=== PATIENT | female | born 1965 | race African-American/Black ===

== ENCOUNTER 2017-02-16 09:59 | Emergency (ER) | payer SELFPAY ==
[~2017-02-16] VITALS: Ht 175.3 cm; Wt 95.3 kg
[~2017-02-16 09:59] MED LIST: SULF1TAB24 PO
--- NOTE | 2017-02-16 10:11 | EKG ---
[facility] [address] [place] [address] Test Date: 2017-02-16 Test Time: 10:06:52 Pat Name: EDMOND ROMANO Department: Room: Gender: F Smalltalk Developer: : 1965 Requested By: LINDA GLORIA Order Number: [id number] Reading MD: Gisela Bright Measurements Intervals [place] Rate: 83 P: 15 WI: 176 QRS: -7 QRSD: 90 T: 31 QT: 410 QTc: 488 Interpretive Statements SINUS RHYTHM LEFT ATRIAL ABNORMALITY LEFTWARD AXIS ABNORMAL ECG Electronically Signed On 02-20-2017 15:16:22 CDT by Gisela Bright
[2017-02-16] MEDS ORDERED: fentaNYL PF VIAL 100 MCG/2 ML VIAL IV ONE (10:30)
--- NOTE | 2017-02-16 10:38 | PHYS DOC ---
Past Medical History Past Medical History: Anxiety, Arthritis, Hypertension Past Surgical History: Cholecystectomy, Knee Replacement, Tonsillectomy, Other Additional Past Surgical Histo: Partial hysterectomy Alcohol Use: Occasionally Drug Use: None Adult General Chief Complaint Chief Complaint: CHEST PAIN HPI HPI Patient is a 51 year old female who presents with intermittent sharp chest pain since yesterday. Pt is substernal and radiates to the left shoulder with mild SOB. Pt's had a "cold" with cough for almost 10 days with runny nose, cough, no known fevers. Pt denies known h/o CAD but has been told in the past she has a "weak heart" at . She has not attempted any symptom controlling medicine, no exacerbating or relieving factors reported. Denies h/o PE/DVT Review of Systems Review of Systems Constitutional: Denies fever or chills [] Eyes: Denies change in visual acuity, redness, or eye pain [] HENT: Denies nasal congestion or sore throat [] Respiratory: per hpi Cardiovascular: No additional information not addressed in HPI [] GI: Denies abdominal pain, nausea, vomiting, bloody stools or diarrhea [] : Denies dysuria or hematuria [] Musculoskeletal: Denies back pain or joint pain [] Integument: Denies rash or skin lesions [] Neurologic: Denies headache, focal weakness or sensory changes [] Current Medications Current Medications Current Medications Medications (Trade) Dose Ordered Sig/[facility] Start Time Stop Time Status Last Admin Dose Admin Fentanyl Citrate (Fentanyl 2ml Vial) 50 mcg 1X ONCE 02/16/17 10:30 02/16/17 10:31 DC 02/16/17 10:43 50 MCG Allergies Allergies Allergies Coded Allergies Type Severity Reaction Last Updated Verified lisinopril Allergy Severe Swelling 07/29/14 Yes morphine Allergy Intermediate stomach cramps 02/16/17 Yes Physical Exam Physical Exam Constitutional: Well developed, well nourished, no acute distress, non-toxic appearance, actively coughing a productive sounding cough HENT: Normocephalic, atraumatic, bilateral external ears normal, oropharynx moist, no oral exudates, nose normal. [] Eyes: PERRLA, EOMI, conjunctiva normal, no discharge. [] Neck: Normal range of motion, no tenderness, supple, no stridor. [] Cardiovascular:Heart rate regular with regular rhythm, no murmur [] Lungs & Thorax: Bilateral breath sounds clear to auscultation, no wheeze, crackles or rhonchi Abdomen: Bowel sounds normal, soft, no tenderness, no masses, no pulsatile masses. [] Skin: Warm, dry, no erythema, no rash. [] Back: No tenderness, no CVA tenderness. [] Extremities: No tenderness, no cyanosis, no clubbing, ROM intact, no edema, neg homen's bilaterally Neurologic: Alert and oriented X 3, normal motor function, normal sensory function, no focal deficits noted. [] Current Patient Data Vital Signs Vital Signs Date Time Temp Pulse Resp B/P (MAP) Pulse Ox O2 Delivery O2 Flow Rate FiO2 02/16/17 10:43 16 100 Room Air 02/16/17 10:05 98.3 82 131/75 (93) 98.3 Lab Values Laboratory Tests Test 02/16/17 10:20 White Blood Count 11.6 x10^3/uL (4.0-11.0) H Red Blood Count 4.60 x10^6/uL (3.50-5.40) Hemoglobin 14.0 g/dL (12.0-15.5) Hematocrit 41.3 % (36.0-47.0) Mean Corpuscular Volume 90 fL (79-100) Mean Corpuscular Hemoglobin 31 pg (25-35) Mean Corpuscular Hemoglobin Concent 34 g/dL (31-37) Red Cell Distribution Width 13.8 % (11.5-14.5) Platelet Count 340 x10^3/uL (140-400) Neutrophils (%) (Auto) 61 % (31-73) Lymphocytes (%) (Auto) 32 % (24-48) Monocytes (%) (Auto) 5 % (0-9) Eosinophils (%) (Auto) 2 % (0-3) Basophils (%) (Auto) 1 % (0-3) Neutrophils # (Auto) 7.0 x10^3uL (1.8-7.7) Lymphocytes # (Auto) 3.7 x10^3/uL (1.0-4.8) Monocytes # (Auto) 0.6 x10^3/uL (0.0-1.1) Eosinophils # (Auto) 0.2 x10^3/uL (0.0-0.7) Basophils # (Auto) 0.1 x10^3/uL (0.0-0.2) Prothrombin Time 12.2 SEC (11.7-14.0) Prothrombin Time INR 1.0 (0.8-1.1) Sodium Level 140 mmol/L (136-145) Potassium Level 3.6 mmol/L (3.5-5.1) Chloride Level 103 mmol/L (98-107) Carbon Dioxide Level 29 mmol/L (21-32) Anion Gap 8 (6-14) Blood Urea Nitrogen 9 mg/dL (7-20) Creatinine 0.8 mg/dL (0.6-1.0) Estimated GFR (Cockcroft-Gault) 91.1 BUN/Creatinine Ratio 11 (6-20) Glucose Level 141 mg/dL (70-99) H Calcium Level 8.9 mg/dL (8.5-10.1) Magnesium Level 2.0 mg/dL (1.8-2.4) Total Bilirubin 0.3 mg/dL (0.2-1.0) Aspartate Amino Transferase (AST) 17 U/L (15-37) Alanine Aminotransferase (ALT) 28 U/L (14-59) Alkaline Phosphatase 122 U/L (46-116) H Troponin I Quantitative < 0.017 ng/mL (0.000-0.055) Total Protein 7.2 g/dL (6.4-8.2) Albumin 3.6 g/dL (3.4-5.0) Albumin/Globulin Ratio 1.0 (1.0-1.7) Laboratory Tests 02/16/17 10:20 Laboratory Tests 02/16/17 10:20 EKG EKG 83 bpm, sinus, normal axis, QTC of 488, no ST elevation or depression, nonischemic T waves, interpreted by me[] Radiology/Procedures Radiology/Procedures Chest x-ray:Portable chest, 02/16/2017: History: Chest pain Comparison is made to a study from 01/16/2013. The heart size and pulmonary vascularity are normal. No pulmonary infiltrates are seen. There is no evidence of pleural fluid. IMPRESSION: No acute cardiopulmonary abnormality is detected. Course & Med Decision Making Course & Med Decision Making Pertinent Labs and Imaging studies reviewed. (See chart for details) Given IV fentanyl for pain relief while labs and chest x-ray performed. Wells score 0, low risk. No acute findings on ED workup, pt with sinusitis we will treat with Augmentin due to duration of symptoms, ibuprofen for chest pain, codeine cough syrup. f/ u with Dr. Yvette Bailon Disclaimer Uvaldo Disclaimer This electronic medical record was generated, in whole or in part, using a voice recognition dictation system. Departure Departure Impression: Primary Impression: Upper respiratory infection Additional Impressions: Chest pain Sinusitis Disposition: HOME, SELF-CARE Condition: STABLE Referrals: MOHAN LINDSAY (PCP) Scripts Codeine Phosphate/Guaifenesin (Guaifen-Codeine 200-20 mg/10Ml) 10 Ml Liquid 10 ML PO PRN Q4-6HRS Y for COUGH, #200 LIQUID use caution, may cause drowsiness Prov: LINDA GLORIA MD 02/16/17 Amoxicillin/Potassium Clav (AUGMENTIN 875-125 TABLET) 1 Each Tablet 1 TAB PO BID, #14 TAB Prov: LINDA GLORIA MD 02/16/17 Ibuprofen (IBUPROFEN) 600 Mg Tablet 600 MG PO PRN Q6HRS Y for PAIN, #20 TAB take with food or milk Prov: LINDA GLORIA MD 02/16/17 Problem Qualifiers LINDA GLORIA MD Feb 16, 2017 10:38
[2017-02-16 10:42] LABS: BASO # 0.1 x10^3/uL (0.0-0.2); BASO % 1 % (0-3); CALCIUM 8.9 mg/dL (8.5-10.1); CREATININE 0.8 mg/dL (0.6-1.0); EOS % 2 % (0-3); GFR 91.1; HEMATOCRIT 41.3 % (36.0-47.0); LYMPH # 3.7 x10^3/uL (1.0-4.8); LYMPH % 32 % (24-48); MEAN CORPUSCULAR HEMOGLOBIN 31 pg (25-35); MEAN CORPUSCULAR HGB CONC 34 g/dL (31-37); MEAN CORPUSCULAR VOLUME 90 fL (79-100); MONO % 5 % (0-9); NEUT % 61 % (31-73); PLATELET COUNT 340 x10^3/uL (140-400); POTASSIUM 3.6 mmol/L (3.5-5.1); RED CELL DISTRIBUTION WIDTH 13.8 % (11.5-14.5); WHITE BLOOD COUNT 11.6 x10^3/uL (4.0-11.0)
[2017-02-16 10:48] LABS: ALBUMIN 3.6 g/dL (3.4-5.0); TOTAL BILIRUBIN 0.3 mg/dL (0.2-1.0); TOTAL PROTEIN 7.2 g/dL (6.4-8.2)
[2017-02-16 10:57] LABS: PROTHROMBIN TIME PATIENT 12.2 SEC (11.7-14.0)
--- NOTE | 2017-02-16 11:00 | RAD ---
Portable chest, 02/16/2017: History: Chest pain Comparison is made to a study from 01/16/2013. The heart size and pulmonary vascularity are normal. No pulmonary infiltrates are seen. There is no evidence of pleural fluid. IMPRESSION: No acute cardiopulmonary abnormality is detected.
[2017-02-16 11:39] VITALS: BP 122/69
[2017-02-16] MEDS ORDERED: CODE10LI PO (11:43)
[2017-02-16] MEDS ORDERED: AMOX1TAB61 PO (11:43)
[2017-02-16] MEDS ORDERED: IBUP-1007 PO (11:43)
== END 2017-02-16 12:00 | disposition home or self-care (01) ==
LOC: ER 09:59
DX: J06.9 Acute upper respiratory infection, unspecified (principal); R07.89 Other chest pain; J32.9 Chronic sinusitis, unspecified; F41.9 Anxiety disorder, unspecified; I10 Essential (primary) hypertension; M19.90 Unspecified osteoarthritis, unspecified site; Z90.711 Acquired absence of uterus with remaining cervical stump; Z96.659 Presence of unspecified artificial knee joint; Z88.8 Allergy status to other drugs, medicaments and biological substances; Z88.5 Allergy status to narcotic agent
CPT/HCPCS: 36415; 71010; 80053; 83735; 84484; 85025; 85610; 93005; 96374; 99285; J3010

== ENCOUNTER 2018-01-25 10:53 | Inpatient (IN) | payer SELFPAY ==
[~2018-01-25] VITALS: Ht 175.3 cm; Wt 110.8 kg
[~2018-01-25 10:53] MED LIST changes: +AMOX1TAB61 PO; +CODE10LI PO; +IBUP-1007 PO
[2018-01-25 11:10] LABS: BASO # 0.1 x10^3/uL (0.0-0.2); BASO % 1 % (0-3); EOS # 0.2 x10^3/uL (0.0-0.7); EOS % 2 % (0-3); HEMATOCRIT 42.2 % (36.0-47.0); HEMOGLOBIN 14.8 g/dL (12.0-15.5); LYMPH # 4.3 x10^3/uL (1.0-4.8); LYMPH % 36 % (24-48); MEAN CORPUSCULAR HEMOGLOBIN 32 pg (25-35); MEAN CORPUSCULAR HGB CONC 35 g/dL (31-37); MEAN CORPUSCULAR VOLUME 90 fL (79-100); MONO # 0.6 x10^3/uL (0.0-1.1); MONO % 5 % (0-9); NEUT # 6.8 x10^3uL (1.8-7.7); NEUT % 56 % (31-73); PLATELET COUNT 326 x10^3/uL (140-400); RED BLOOD COUNT 4.67 x10^6/uL (3.50-5.40); RED CELL DISTRIBUTION WIDTH 13.3 % (11.5-14.5)
--- NOTE | 2018-01-25 11:22 | RAD ---
Single view chest 01/25/2018 CLINICAL INDICATION: Chest pain, shortness of breath. COMPARISON: Chest 02/16/2017 Lines: Cardiac and mediastinal silhouettes are unremarkable. No pleural effusion, pneumothorax or focal consolidation. IMPRESSION: No acute cardiopulmonary abnormality. Electronically signed by: Christoph Mclean MD (01/25/2018 11:18 AM) [id number]
[2018-01-25 11:23] LABS: CALCIUM 8.7 mg/dL (8.5-10.1); GFR 70.2; POTASSIUM 4.1 mmol/L (3.5-5.1)
[2018-01-25 11:29] LABS: ALBUMIN 3.4 g/dL (3.4-5.0); DIRECT BILIRUBIN 0.1 mg/dL (0.0-0.2); TOTAL BILIRUBIN 0.4 mg/dL (0.2-1.0); TOTAL PROTEIN 6.2 g/dL (6.4-8.2)
[2018-01-25 11:30] LABS: PROTHROMBIN TIME PATIENT 12.5 SEC (11.7-14.0)
--- NOTE | 2018-01-25 11:35 | PHYS DOC ---
Past Medical History Past Medical History: Anxiety, Arthritis, Hypertension Past Surgical History: Cholecystectomy, Knee Replacement, Tonsillectomy, Other Additional Past Surgical Histo: Partial hysterectomy Additional Information: 4 cigarettes daily Alcohol Use: Occasionally Drug Use: None Adult General Chief Complaint Chief Complaint: CHEST PAIN HPI HPI This is a pleasant 52-year-old female with a history of smoking, family history of heart disease and high blood pressure who presents the emergency department today with chest pain. She denies high cholesterol or diabetes. She denies a history of unilateral leg swelling, hemoptysis, recent immobilization or surgery. She denies personal or family history of blood clotting disorders. He describes the pain as a pulling a pressure sensation that radiates in the left chest and left shoulder. She reports having a cough for the past week to 2 weeks. She was given antibiotics which mildly improved his symptoms which returned a few days after discontinuing the antibiotics. Review of systems is negative for abdominal pain nausea vomiting diaphoresis fevers or chills. All other review of systems is negative unless otherwise noted in history of present illness. ED course: 52-year-old female presenting with chest pain and cough over the past week. Initial EKG obtained and reviewed by myself shows sinus rhythm with a regular rate. ST segments are congruent. Not suggestive of ACS. Patient is well-appearing on examination. Clear lungs bilaterally. No wheezing. Abdomen is soft and nontender. Blood work sent. Troponin negative. Initial workup is unremarkable. Given elevated heart score will admit the patient for serial troponin and cardiac consultation. D-dimer is within normal limits. Dr. Murphy accepts patient for admission. Basic bridge orders placed. Review of Systems Review of Systems SEE ABOVE. Current Medications Current Medications Current Medications Medications (Trade) Dose Ordered Sig/Chapito Start Time Stop Time Status Last Admin Dose Admin Aspirin (Children'S Aspirin) 324 mg 1X ONCE 01/25/18 12:00 01/25/18 12:01 DC 01/25/18 12:12 324 MG Morphine Sulfate (Morphine Sulfate) 2 mg PRN Q2HR PRN 01/25/18 12:00 01/26/18 11:59 01/25/18 13:39 2 MG Ondansetron HCl (Zofran) 4 mg PRN Q8HRS PRN 01/25/18 12:00 01/26/18 11:59 Sodium Chloride 1,000 ml @ 100 mls/hr Q10H 01/25/18 11:49 01/26/18 11:48 01/25/18 13:39 100 MLS/HR Allergies Allergies Allergies Coded Allergies Type Severity Reaction Last Updated Verified latex Allergy Severe swelling 01/25/18 Yes lisinopril Allergy Severe Swelling 07/29/14 Yes Physical Exam Physical Exam SEE ABOVE Constitutional: Well developed, well nourished, no acute distress, non-toxic appearance. [] HENT: Normocephalic, atraumatic, bilateral external ears normal, oropharynx moist, no oral exudates, nose normal. [] Eyes: PERRLA, EOMI, conjunctiva normal, no discharge. [] Neck: Normal range of motion, no tenderness, supple, no stridor. [] Cardiovascular:Heart rate regular rhythm, no murmur [] Lungs & Thorax: Bilateral breath sounds clear to auscultation [] Abdomen: Bowel sounds normal, soft, no tenderness, no masses, no pulsatile masses. [] Skin: Warm, dry, no erythema, no rash. [] Back: No tenderness, no CVA tenderness. [] Extremities: No tenderness, no cyanosis, no clubbing, ROM intact, no edema. [] Neurologic: Alert and oriented X 3, normal motor function, normal sensory function, no focal deficits noted. [] Psychologic: Affect normal, judgement normal, mood normal. [] Current Patient Data Vital Signs Vital Signs Date Time Temp Pulse Resp B/P (MAP) Pulse Ox O2 Delivery O2 Flow Rate FiO2 01/25/18 11:30 68 20 141/87 (105) 97 Room Air 01/25/18 10:55 98.7 98.7 Lab Values Laboratory Tests Test 01/25/18 11:00 White Blood Count 12.0 x10^3/uL (4.0-11.0) H Red Blood Count 4.67 x10^6/uL (3.50-5.40) Hemoglobin 14.8 g/dL (12.0-15.5) Hematocrit 42.2 % (36.0-47.0) Mean Corpuscular Volume 90 fL (79-100) Mean Corpuscular Hemoglobin 32 pg (25-35) Mean Corpuscular Hemoglobin Concent 35 g/dL (31-37) Red Cell Distribution Width 13.3 % (11.5-14.5) Platelet Count 326 x10^3/uL (140-400) Neutrophils (%) (Auto) 56 % (31-73) Lymphocytes (%) (Auto) 36 % (24-48) Monocytes (%) (Auto) 5 % (0-9) Eosinophils (%) (Auto) 2 % (0-3) Basophils (%) (Auto) 1 % (0-3) Neutrophils # (Auto) 6.8 x10^3uL (1.8-7.7) Lymphocytes # (Auto) 4.3 x10^3/uL (1.0-4.8) Monocytes # (Auto) 0.6 x10^3/uL (0.0-1.1) Eosinophils # (Auto) 0.2 x10^3/uL (0.0-0.7) Basophils # (Auto) 0.1 x10^3/uL (0.0-0.2) Prothrombin Time 12.5 SEC (11.7-14.0) Prothrombin Time INR 1.0 (0.8-1.1) PTT 27 SEC (24-38) D-Dimer (Marlen) < 0.27 ug/mlFEU Sodium Level 144 mmol/L (136-145) Potassium Level 4.1 mmol/L (3.5-5.1) Chloride Level 106 mmol/L (98-107) Carbon Dioxide Level 28 mmol/L (21-32) Anion Gap 10 (6-14) Blood Urea Nitrogen 11 mg/dL (7-20) Creatinine 1.0 mg/dL (0.6-1.0) Estimated GFR (Cockcroft-Gault) 70.2 Glucose Level 136 mg/dL (70-99) H Calcium Level 8.7 mg/dL (8.5-10.1) Total Bilirubin 0.4 mg/dL (0.2-1.0) Direct Bilirubin 0.1 mg/dL (0.0-0.2) Aspartate Amino Transferase (AST) 16 U/L (15-37) Alanine Aminotransferase (ALT) 26 U/L (14-59) Alkaline Phosphatase 103 U/L (46-116) Troponin I Quantitative < 0.017 ng/mL (0.000-0.055) QB-Tiw-V-Type Natriuretic Peptide 39 pg/mL (0-124) Total Protein 6.2 g/dL (6.4-8.2) L Albumin 3.4 g/dL (3.4-5.0) Lipase 101 U/L (73-393) Laboratory Tests 01/25/18 11:00 Laboratory Tests 01/25/18 11:00 EKG EKG [] Radiology/Procedures Radiology/Procedures [] Course & Med Decision Making Course & Med Decision Making Pertinent Labs and Imaging studies reviewed. (See chart for details) [] Dragon Disclaimer Dragon Disclaimer This electronic medical record was generated, in whole or in part, using a voice recognition dictation system. Departure Departure Impression: Primary Impression: Chest pain Disposition: ADMITTED INPATIENT Admitting Physician: Sanford Murphy Condition: STABLE Referrals: MOHAN LINDSAY (PCP) AMI GRULLON MD Jan 25, 2018 11:34
[2018-01-25] MEDS ORDERED: ONDANSETRON PF 4 MG/2 ML VIAL. IV PRN (12:00)
[2018-01-25] MEDS ORDERED: ASPIRIN CHEWABLE 81 MG TABLET. PO ONE (12:00)
--- NOTE | 2018-01-25 13:03 | EKG ---
[facility] [address] [place] [address] Test Date: 2018-01-25 Test Time: 10:57:04 Pat Name: EDMOND ROMANO Department: Room: 569 1 Gender: F Building Performance Specialist: : 1965 Requested By: AMI GRULLON Order Number: [id number] Reading MD: Terence Colby Measurements Intervals [place] Rate: 79 P: 41 LA: 184 QRS: 0 QRSD: 94 T: 39 QT: 380 QTc: 437 Interpretive Statements SINUS RHYTHM LEFTWARD AXIS Electronically Signed On 01-31-2018 10:10:53 CDT by Terence Colby
--- NOTE | 2018-01-25 13:35 | PDOC2 ---
VALERIO OSBORNE OBGYN SPECIALIST 01/25/18 1335: CARDIAC CONSULT DATE OF CONSULT Date of Consult DATE: 01/25/18 TIME: 13:26 REASON FOR CONSULT Reason for Consult: Chest pain REFERRING PHYSICIAN Referring Physician: Colton SOURCE Source: Chart review, Patient HISTORY OF PRESENT ILLNESS HISTORY OF PRESENT ILLNESS This is a pleasant 52 yo female admitted for complains of chest pain. Reports that he has been having this steadily increasing productive cough. She eventually started having increasing nasal congestion with greenish sputum production. she was treated with antibiotics for 5 days with last dose Tuesday but unsure what type of antibiotics. No inhalers nor steroids were given. She got better Tuesday and has been taking robitussin and mucinex but her symptoms started coming back again Tuesday. She has been having intractable coughing and heartburn started occuring. she developed yesterday and pulling pain to her left chest going to her shoulder which occurred after significant coughing spell. After coughing spell she felt a little SOA. This is reproducible with palpation. Denies any fever, chills or diaphoresis. No significant palpitations nor jaw pain. Denies any CAD, VTE, falls or any recent injury. No recreational drug use but continues to smoke tobacco throughout the whole process of her respiratory symptoms. PAST MEDICAL HISTORY Cardiovascular: HTN Pulmonary: Pneumonia (in the last yr) CENTRAL NERVOUS SYSTEM: Other (No pertinent history) GI: No pertinent hx Heme/Onc: No pertinent hx Hepatobiliary: Cholelithiasis Psych: Anxiety Musculoskeletal: Osteoarthritis Rheumatologic: No pertinent hx Infectious disease: No pertinent hx ENT: No pertinent hx Renal/: No pertinent hx, UTI Endocrine: No pertinent hx Dermatology: No pertinent hx PAST SURGICAL HISTORY Past Surgical History: Cholecystectomy, Total knee replacement (right), Tonsillectomy, Hysterectomy FAMILY HISTORY Family History: Coronary Artery Disease (mother at 50s and father. Daughter cardiac arrest at 34 yo now with AICD), Heart Disease, Other (truong has sarcoidosis) SOCIAL HISTORY Smoke: <1 pack per day ALCOHOL: none Drugs: None Lives: Alone CURRENT MEDICATIONS CURRENT MEDICATIONS Current Medications Medications (Trade) Dose Ordered Sig/[facility] Route PRN Reason Start Time Stop Time Status Last Admin Dose Admin Aspirin (Children'S Aspirin) 324 mg 1X ONCE PO 01/25/18 12:00 01/25/18 12:01 DC 01/25/18 12:12 ALLERGIES ALLERGIES: Coded Allergies: latex (Verified Allergy, Severe, swelling, 01/25/18) lisinopril (Verified Allergy, Severe, Swelling, 07/29/14) ROS Review of System 14 point ROS evaluated with pertinent positives noted per HPI PHYSICAL EXAM General: Alert, Oriented X3, Cooperative, No acute distress HEENT: Atraumatic, Mucous membr. moist/pink, Other (nasal congestion) Heart: Regular rate (SR), Normal S1, Normal S2, No murmurs Abdomen: Soft, No tenderness Extremities: No cyanosis, No edema Skin: No breakdown, No significant lesion Neuro: Normal speech, Sensation intact Psych/Mental Status: Mental status NL, Mood NL MUSCULOSKELETAL: Osteoarthritic changes both hands VITALS VITALS Vital Signs Date Time Temp Pulse Resp B/P (MAP) Pulse Ox O2 Delivery O2 Flow Rate FiO2 01/25/18 12:30 62 18 131/83 (99) 99 Room Air 01/25/18 10:55 98.7 98.7 LABS Lab: Laboratory Tests Test 01/25/18 11:00 White Blood Count 12.0 x10^3/uL (4.0-11.0) Red Blood Count 4.67 x10^6/uL (3.50-5.40) Hemoglobin 14.8 g/dL (12.0-15.5) Hematocrit 42.2 % (36.0-47.0) Mean Corpuscular Volume 90 fL (79-100) Mean Corpuscular Hemoglobin 32 pg (25-35) Mean Corpuscular Hemoglobin Concent 35 g/dL (31-37) Red Cell Distribution Width 13.3 % (11.5-14.5) Platelet Count 326 x10^3/uL (140-400) Neutrophils (%) (Auto) 56 % (31-73) Lymphocytes (%) (Auto) 36 % (24-48) Monocytes (%) (Auto) 5 % (0-9) Eosinophils (%) (Auto) 2 % (0-3) Basophils (%) (Auto) 1 % (0-3) Neutrophils # (Auto) 6.8 x10^3uL (1.8-7.7) Lymphocytes # (Auto) 4.3 x10^3/uL (1.0-4.8) Monocytes # (Auto) 0.6 x10^3/uL (0.0-1.1) Eosinophils # (Auto) 0.2 x10^3/uL (0.0-0.7) Basophils # (Auto) 0.1 x10^3/uL (0.0-0.2) Prothrombin Time 12.5 SEC (11.7-14.0) Prothromb Time International Ratio 1.0 (0.8-1.1) Activated Partial Thromboplast Time 27 SEC (24-38) D-Dimer (Marlen) < 0.27 ug/mlFEU Sodium Level 144 mmol/L (136-145) Potassium Level 4.1 mmol/L (3.5-5.1) Chloride Level 106 mmol/L (98-107) Carbon Dioxide Level 28 mmol/L (21-32) Anion Gap 10 (6-14) Blood Urea Nitrogen 11 mg/dL (7-20) Creatinine 1.0 mg/dL (0.6-1.0) Estimated GFR (Cockcroft-Gault) 70.2 Glucose Level 136 mg/dL (70-99) Calcium Level 8.7 mg/dL (8.5-10.1) Total Bilirubin 0.4 mg/dL (0.2-1.0) Direct Bilirubin 0.1 mg/dL (0.0-0.2) Aspartate Amino Transf (AST/SGOT) 16 U/L (15-37) Alanine Aminotransferase (ALT/SGPT) 26 U/L (14-59) Alkaline Phosphatase 103 U/L (46-116) Troponin I Quantitative < 0.017 ng/mL (0.000-0.055) LE-Vth-M-Type Natriuretic Peptide 39 pg/mL (0-124) Total Protein 6.2 g/dL (6.4-8.2) Albumin 3.4 g/dL (3.4-5.0) Lipase 101 U/L (73-393) ASSESSMENT/PLAN ASSESSMENT/PLAN 1. Atypical CP: doubt ACS. MSK exacerbated by intractable coughing 2. Persistent URI; Last dose of antibiotics Tuesday. 3. AECOPD with continued tobaccoism: smoking since she was 14 yo. Per PCP 4. GERD exacerbation 5. HTN; takes home amlodipine 6. Family hx of sarcoidosis Recommendations 1. TTE and lipids. 2. Defer COPD and URI tgreatments to PCP. Pepcid to start. 3. Smoking cessation PASNOORI,MICHELLE R MD 01/25/18 1625: CARDIAC CONSULT ASSESSMENT/PLAN ASSESSMENT/PLAN Patient seen and examined. Agree with SANDER MACHINE's assessment and plan. Chest pain with atypical features, reproducible to palpation and most probably musculoskeletal Myocardial infarction has been ruled out 2-D echo showed normal LV function without any wall motion abnormalities Continue current treatment for acute COPD exacerbation Thank you for your consultation VALERIO OSBORNE APRN Jan 25, 2018 13:35 MICHELLE KURTZ MD Jan 25, 2018 16:25
[2018-01-25] MEDS: IV NORMAL SALINE 1000ML BAG 1,000 ML IV SCH ×2 (13:39→21:13)
[2018-01-25] MEDS: MORPHINE SULFATE 2 MG/ML VIAL. IV PRN ×3 (13:39→21:12)
[2018-01-25] MEDS ORDERED: HYDR12.58 PO (13:48)
[2018-01-25] MEDS ORDERED: AMLO10TA6 PO (13:48)
[2018-01-25] MEDS ORDERED: ALPR0.5T PO (13:48)
[2018-01-25] MEDS ORDERED: IBUP-1060 PO (13:48)
[2018-01-25 15:00] VITALS: BP_SYST 122; BP_SYST 159; BP_DIAS 74; BP_DIAS 94
[2018-01-25] MEDS ORDERED: ALPRAZolam 0.5 MG TABLET PO PRN (16:00)
[2018-01-25] MEDS ORDERED: IBUPROFEN 400 MG TABLET. PO PRN (16:00)
--- NOTE | 2018-01-25 16:18 | CARD ---
MR#: [id number] Date of Study: 01/25/2018 Ordering Physician: VALERIO OSBORNE, Referring Physician: ELLIS CHOI Tech: Iivs Ramirez FLAVIO APPROVED REPORT EXAM: Two-dimensional and M-mode echocardiogram with Doppler and color Doppler. Other Information Quality : Technically LimitedHR: 63bpm Rhythm : NSRTechnically limited study due to smoking. INDICATION Hypertension/HCVD Chest Pain RISK FACTORS Hypertension Obesity Smoking 2D DIMENSIONS RVDd2.4 (2.9-3.5cm)Left Atrium(2D)3.5 (1.6-4.0cm) IVSd0.9 (0.7-1.1cm)Aortic Root(2D)2.5 (2.0-3.7cm) LVDd5.4 (3.9-5.9cm)LVOT Diameter1.9 (1.8-2.4cm) PWd1.0 (0.7-1.1cm)LVDs4.0 (2.5-4.0cm) FS (%) 25.4 %SV69.0 ml LVEF(%)55.0 (>50%) M-Mode DIMENSIONS Left Atrium(MM)3.38 (2.5-4.0cm)Aortic Root3.38 (2.2-3.7cm) Aortic Valve AoV Peak Ruben.149.7cm/sAoV VTI30.4cm AO Peak GR.9.0mmHgLVOT Peak Ruben.127.1cm/s LVOT VTI 26.77cmAO Mean GR.4mmHg NBA (VMAX)2.28ci8ULR (VTI)2.61cm2 Mitral Valve MV E Edtcbeoy17.6cm/sMV DECEL [id number] MV A Bmbeoqkg045.2cm/sMV ZGC36vs E/A Ratio0.6MV A Hjkqodat299gf MVA (PHT)2.69cm2 TDI E/Lateral E'6.1E/Medial E'4.0 Pulmonary Valve PV Peak Qbgauqhl186.8cm/sPV Peak Grad.5mmHg Pulmonary Vein S1 Hppbjvlr81.3cm/sD2 Qaxikzsk49.4cm/s PVa [id number] LEFT VENTRICLE The left ventricle is normal size. There is normal left ventricular wall thickness. The left ventricu lar systolic function is normal. The Ejection Fraction is 55-60%. There is normal LV segmental wall m otion. The left ventricular diastolic function and filling is normal for age. RIGHT VENTRICLE The right ventricle is normal size. There is normal right ventricular wall thickness. The right ventr icular systolic function is normal. ATRIA The left atrium size is normal. The right atrium size is normal. The interatrial septum is intact wit h no evidence for an atrial septal defect or patent foramen ovale as noted on 2-D or Doppler imaging. AORTIC VALVE The aortic valve is thickened but opens well. Doppler and Color Flow revealed no significant aortic r egurgitation. There is no significant aortic valvular stenosis. MITRAL VALVE The mitral valve is normal in structure and function. There is no evidence of mitral valve prolapse. There is no mitral valve stenosis. Doppler and Color Flow revealed no mitral valve regurgitation note d. TRICUSPID VALVE The tricuspid valve is normal in structure and function. Doppler and Color Flow revealed trace tricus pid valve regurgitation. There is no tricuspid valve prolapse or vegetation. There is no tricuspid va lve stenosis. PULMONIC VALVE The pulmonary valve is normal in structure and function. Doppler and Color Flow revealed no pulmonic valvular regurgitation. There is no pulmonic valvular stenosis. GREAT VESSELS The aortic root is normal in size. PERICARDIAL EFFUSION There is no evidence of significant pericardial effusion. Critical Notification Critical Value: No <Conclusion> The left ventricular systolic function is normal. The Ejection Fraction is 55-60%. There is normal LV segmental wall motion. Doppler and Color Flow revealed trace tricuspid valve regurgitation. There is no evidence of significant pericardial effusion. Signed by : Terence Colby, Electronically Approved : 01/25/2018 16:17:53
--- NOTE | 2018-01-25 16:26 | PDOC2 ---
GI CONSULT Reason For Consult: Reflux, Dr. Murphy wants in case need for EGD HPI: HPI: 52 y/o female who has recently had URI symptoms including productive cough, nasal congestion, and discharge from eyes. Was given an antibiotic for 5 days which she finished on Tuesday. On Tuesday, phlegm changed back to green from clear. That day or soon after, started having some chest and abd soreness from coughing. Then awoke last night w/ upper left chest pain - more severe, squeezing, radiating to left shoulder. Became more concerned when associated w / SOA. Came to ER, admitted for cardiology workup. In general has noted fatigue. Has had heartburn for about 2 months, occurs daily - sometimes after eating, sometimes randomly. Has been using "off brand Tums" and drinking more water. No nausea or vomiting but notes decreased appetite. Not sure about weight loss but thinks her clothes are "sagging." Also occasionally notes that solid foods (meat, bread) hangs in throat, has to drink water to help pass. No regurg or odynophagia. Has some vague upper abd discomfort attributed to coughing, though over the years it has not been uncommon for her to have pain in that area intermittently. No diarrhea or constipation. No hematochezia or melena. No previous EGD. Colonoscopy for "stomach problems" when she was 18 or 19, recalled as normal. S/p cholecystectomy for stones. No liver or pancreas history. Takes ibuprofen 800mg or Naproxen PRN for knee pain - says mostly when the weather changes. Labs unrevealing. Echocardiogram pending. Was started on Pepcid. PMH: PMH: HTN, pneumonia, anxiety, OA, UTI, cholecystectomy, right total knee replacement , tonsillectomy, partial hysterectomy FH: Family History: CAD, Other (sister - colon polyps, sister and mother - ulcers, mother - sarcoidosis) Social History: Smoke: <1 pack per day ALCOHOL: none Drugs: None ROS: GEN: Denies fevers, chills, sweats HEENT: Denies blurred vision, sore throat CV: Denies chest pain RESP: Denies shortness of air, cough GI: Per HPI : Denies hematuria, dysuria ENDO: Denies weight changes NEURO: Denies confusion, dizziness MSK: Denies weakness, joint pain/swelling SKIN: Denies jaundice, pruritus Vitals: Vitals: Vital Signs Date Time Temp Pulse Resp B/P (MAP) Pulse Ox O2 Delivery O2 Flow Rate FiO2 01/25/18 15:00 97.7 64 20 122/74 (90) 97 Room Air 97.7 Labs: Labs: Laboratory Tests Test 01/25/18 11:00 01/25/18 14:35 White Blood Count 12.0 x10^3/uL (4.0-11.0) Red Blood Count 4.67 x10^6/uL (3.50-5.40) Hemoglobin 14.8 g/dL (12.0-15.5) Hematocrit 42.2 % (36.0-47.0) Mean Corpuscular Volume 90 fL (79-100) Mean Corpuscular Hemoglobin 32 pg (25-35) Mean Corpuscular Hemoglobin Concent 35 g/dL (31-37) Red Cell Distribution Width 13.3 % (11.5-14.5) Platelet Count 326 x10^3/uL (140-400) Neutrophils (%) (Auto) 56 % (31-73) Lymphocytes (%) (Auto) 36 % (24-48) Monocytes (%) (Auto) 5 % (0-9) Eosinophils (%) (Auto) 2 % (0-3) Basophils (%) (Auto) 1 % (0-3) Neutrophils # (Auto) 6.8 x10^3uL (1.8-7.7) Lymphocytes # (Auto) 4.3 x10^3/uL (1.0-4.8) Monocytes # (Auto) 0.6 x10^3/uL (0.0-1.1) Eosinophils # (Auto) 0.2 x10^3/uL (0.0-0.7) Basophils # (Auto) 0.1 x10^3/uL (0.0-0.2) Prothrombin Time 12.5 SEC (11.7-14.0) Prothromb Time International Ratio 1.0 (0.8-1.1) Activated Partial Thromboplast Time 27 SEC (24-38) D-Dimer (Marlen) < 0.27 ug/mlFEU Sodium Level 144 mmol/L (136-145) Potassium Level 4.1 mmol/L (3.5-5.1) Chloride Level 106 mmol/L (98-107) Carbon Dioxide Level 28 mmol/L (21-32) Anion Gap 10 (6-14) Blood Urea Nitrogen 11 mg/dL (7-20) Creatinine 1.0 mg/dL (0.6-1.0) Estimated GFR (Cockcroft-Gault) 70.2 Glucose Level 136 mg/dL (70-99) Calcium Level 8.7 mg/dL (8.5-10.1) Total Bilirubin 0.4 mg/dL (0.2-1.0) Direct Bilirubin 0.1 mg/dL (0.0-0.2) Aspartate Amino Transf (AST/SGOT) 16 U/L (15-37) Alanine Aminotransferase (ALT/SGPT) 26 U/L (14-59) Alkaline Phosphatase 103 U/L (46-116) Troponin I Quantitative < 0.017 ng/mL (0.000-0.055) < 0.017 ng/mL (0.000-0.055) BL-Tja-K-Type Natriuretic Peptide 39 pg/mL (0-124) Total Protein 6.2 g/dL (6.4-8.2) Albumin 3.4 g/dL (3.4-5.0) Lipase 101 U/L (73-393) Allergies: Coded Allergies: latex (Verified Allergy, Severe, swelling, 01/25/18) lisinopril (Verified Allergy, Severe, Swelling, 07/29/14) Medications: Current Medications Medications (Trade) Dose Ordered Sig/Chapito Route PRN Reason Start Time Stop Time Status Last Admin Dose Admin Morphine Sulfate (Morphine Sulfate) 2 mg PRN Q2HR PRN IV PAIN 01/25/18 12:00 01/26/18 11:59 01/25/18 13:39 Sodium Chloride 1,000 ml @ 100 mls/hr Q10H IV 01/25/18 11:49 01/26/18 11:48 01/25/18 13:39 Aspirin (Children'S Aspirin) 324 mg 1X ONCE PO 01/25/18 12:00 01/25/18 12:01 DC 01/25/18 12:12 Imaging: Imaging: CXR IMPRESSION: No acute cardiopulmonary abnormality. Echocardiogram (pending) PE: GEN: NAD HEENT: Atraumatic, PERRL LUNGS: CTAB HEART: RRR ABD: NABS, S/ND, very mild/vague epigastric/BUQ discomfort EXTREMITY: No edema SKIN: No rashes, no jaundice NEURO/PSYCH: A & O 3 A/P: A/P: Recent URI/cough Left-sided chest/shoulder pain Heartburn, intermittent dysphagia Upper abd discomfort - long history of, now attributed to coughing CRC screen, FH colon polyps - reports normal colonoscopy ~30 years ago S/p cholecystectomy -- Will give PPI in place of H2 ozzie. Echocardiogram pending, await this. Consider EGD, will review timing w/ Dr. Lawler. Seems also due for outpt screening colonoscopy. CLOVER EMMANUEL Jan 25, 2018 16:26
[2018-01-25] MEDS: LIDO:MAALOX 1:1 20 ML SINGLE DOSE. PO PRN (16:37)
[2018-01-25] MEDS: PANTOPRAZOLE 40 MG TABLET.DR. PO SCH (16:37)
[2018-01-25 19:00] VITALS: BP 116/74
[2018-01-25] MEDS ORDERED: FAMOTIDINE 20 MG TABLET. PO SCH (21:00)
[2018-01-25 23:00] VITALS: BP 136/54
[2018-01-26 03:30] VITALS: BP 112/68
[2018-01-26 04:23] LABS: BASO % 1 % (0-3); EOS # 0.2 x10^3/uL (0.0-0.7); EOS % 2 % (0-3); HEMATOCRIT 38.5 % (36.0-47.0); HEMOGLOBIN 13.1 g/dL (12.0-15.5); LYMPH # 4.8 x10^3/uL (1.0-4.8); LYMPH % 59 % (24-48); MEAN CORPUSCULAR HEMOGLOBIN 31 pg (25-35); MEAN CORPUSCULAR HGB CONC 34 g/dL (31-37); MEAN CORPUSCULAR VOLUME 91 fL (79-100); MONO # 0.6 x10^3/uL (0.0-1.1); MONO % 7 % (0-9); NEUT # 2.6 x10^3uL (1.8-7.7); NEUT % 32 % (31-73); PLATELET COUNT 289 x10^3/uL (140-400); RED BLOOD COUNT 4.23 x10^6/uL (3.50-5.40); RED CELL DISTRIBUTION WIDTH 13.2 % (11.5-14.5); WHITE BLOOD COUNT 8.2 x10^3/uL (4.0-11.0)
[2018-01-26 05:03] LABS: CREATININE 0.7 mg/dL (0.6-1.0); GFR 105.9; POTASSIUM 3.7 mmol/L (3.5-5.1)
[2018-01-26 05:20] LABS: CHOLESTEROL/HDL RATIO 4.6
[2018-01-26] MEDS: LIDO:MAALOX 1:1 20 ML SINGLE DOSE. PO PRN (05:59)
[2018-01-26] MEDS: MORPHINE SULFATE 2 MG/ML VIAL. IV PRN (05:59)
[2018-01-26 07:00] VITALS: BP 125/75
[2018-01-26 07:36] LABS: % BASOS 1 % (0-3); % EOS 1 % (0-5); % LYMPHS 62 % (24-48); % MONOS 3 % (0-10); % SEGS 33 % (35-66); PLT ESTIMATE ADEQUATE (ADEQUATE)
[2018-01-26] MEDS ORDERED: hydroCHLOROthiazide 25 MG TABLET PO SCH (09:00)
[2018-01-26] MEDS: PANTOPRAZOLE 40 MG TABLET.DR. PO SCH (09:52)
[2018-01-26] MEDS ORDERED: AMOX1TAB61 PO (09:58)
[2018-01-26] MEDS ORDERED: NON FORMULARY ITEM (Ibuprofen 800 MG) PO PRN (10:00)
--- NOTE | 2018-01-26 10:05 | PDOC ---
Provider Note Provider Note Pt seen ,combined H&P and d/c dictated. EGD out pt. Echo good lvf. home today on Augmentin x10 days for sinusits/bronchitis ELLIS CHOI MD Jan 26, 2018 10:05
[2018-01-26] MEDS ORDERED: amLODIPine BESYLATE 10 MG TABLET PO SCH (10:30)
--- NOTE | 2018-01-26 10:48 | HP ---
ADMIT DATE: 01/25/2018 LOCATION: 9. REASON FOR ADMISSION TO THE HOSPITAL: Chest pain, anterior chest, possible skeletomuscular, possible GERD. HISTORY OF PRESENT ILLNESS: The patient is a 52-year-old female, patient of Dr. Lindsay. She had upper respiratory infection going on for a month, got Zithromax from Dr. Lindsay. She finished a week ago. In spite of that, she was still having pain, coughing up, and she had pain in the anterior part of the chest. She has a history of hypertension, came to the Emergency Room. The patient was admitted overnight for observation. Had cardiac enzymes, was negative, seen by Cardiology. Echo was normal and then look like a typical cardiac pain and also seen by GI who recommended outpatient EGD. PAST MEDICAL HISTORY: He has a history of hypertension, arthritis, anxiety. PAST SURGICAL HISTORY: Gallbladder surgery, knee replacement, tonsillectomy, partial hysterectomy. ALLERGIES: LISINOPRIL AND LATEX CAUSE SWELLING. MEDICATIONS AT HOME: She is on amlodipine, hydrochlorothiazide and ibuprofen. PERSONAL HISTORY: Four cigarettes daily for 20 years. Social alcohol. Denies any street drugs. FAMILY HISTORY: Positive for hypertension. REVIEW OF SYSTEMS: CARDIAC: She had some chest pain in anterior part, mostly with coughing, had some reflux symptoms. No sweating, no radiation. PHYSICAL EXAMINATION: GENERAL: She is pleasant, not in any distress. VITAL SIGNS: At the time of admission show temperature 98, pulse 80, respirations 28, blood pressure 140/78, 97 on room air. HEENT: Head is atraumatic. Pupils equal. Oral cavity: No congestion. NECK: Supple. Thyroid not enlarged. JVD not elevated. CHEST: Symmetrical. CARDIOVASCULAR: S1, S2. LUNGS: Clear. ABDOMEN: Soft, bowel sounds present, no mass palpable. EXTERNAL GENITALIA: No Melvin. RECTAL: Deferred. EXTREMITIES: No calf tenderness. NEUROLOGIC: Moving all extremities. No focal deficit noted. LABORATORY DATA: Shows a white count of 12, hemoglobin 14, platelets 326. INR is 1.0. Electrolytes were unremarkable. Sodium 144, potassium 4.1, chloride 106, bicarbonate 28, BUN 11, creatinine 1.0. Glucose 136. Lipase was normal. Cholesterol 171, LDL 88, VLDL is 134, HDL 37, triglycerides 229. Chest x-ray was negative. EKG done, report is pending. Echocardiogram shows a normal left ventricular function. FINAL IMPRESSION: 1. Chest pain, mostly skeletomuscular from coughing. 2. Possible gastroesophageal reflux disease. 3. Hypertension and arthritis. PLAN: At this time, was admit to hospital for observation, seen by Cardiology. Echo was good. Scheduled to discharge home today, was seen by GI, scheduled for outpatient EGD and needs a screening colonoscopy and may need Protonix after the EGD is done. The patient is discharged on Augmentin 875 b.i.d. 20 days for another course of antibiotic for sinusitis. ELLIS CHOI MD DR: ARNIE/maty JOB#: [id number] / [id number] courtney LINDSAY DR
--- NOTE | 2018-01-26 14:31 | PDOC ---
Provider Note Provider Note Discharge summary dictated. #[id number]. ELLIS CHOI MD Jan 26, 2018 14:31
--- NOTE | 2018-01-26 14:57 | DS ---
DATE OF DISCHARGE: 01/26/2018 ATTENDING PHYSICIAN: Dr. Choi. PRIMARY PHYSICIAN: Dr. Crawford. REASON FOR ADMISSION TO THE HOSPITAL: Chest wall pain, possible reflux disease. CONSULTATION: Cardiology, Dr. Colby; Dr. Lawler, GI. PROCEDURES DONE: Echocardiogram. HOSPITAL COURSE: The patient is a 52-year-old female with history of hypertension, arthritis, had sinus infection, was given antibiotic, did not improve much. She was coughing bad, noticed some pain in the anterior part of the chest, came to the Emergency Room. Was like a skeletomuscular pain, seen by Cardiology, cardiac enzymes negative. Echocardiogram shows a good left ventricular function. The patient was seen by GI, possible GERD. It was recommended to do outpatient endoscopy. The patient was feeling better and she was discharged. FINAL DIAGNOSES: 1. Chest pain, probably skeletomuscular. 2. Possible gastroesophageal reflux disease, coexisting problem. 3. Hypertension. DISPOSITION: Home. See [facility] for discharge medications. Outpatient EGD and also given Augmentin for sinusitis and bronchitis, which is not completely resolved. Follow with PCP in 1 week. ELLIS CHOI MD DR: ARNIE/maty JOB#: [id number] / [id number]
[2018-01-27] MEDS ORDERED: NON FORMULARY ITEM (Hydrochlorothiazide (Hydrochlorothiazide Tablet) 25 MG) PO SCH (09:00)
[2018-01-27] MEDS ORDERED: amLODIPine BESYLATE 10 MG TABLET PO SCH (09:00)
== END 2018-01-26 10:30 | disposition home or self-care (01) | DRG 392 ==
LOC: ER 10:53 → 5 SOUTH 12:15
PROVIDERS: ADMIT Internal Medicine; ATTEND Internal Medicine
DX: K21.9 Gastro-esophageal reflux disease without esophagitis (principal); J44.1 Chronic obstructive pulmonary disease with (acute) exacerbation; R07.89 Other chest pain; D86.9 Sarcoidosis, unspecified; F17.210 Nicotine dependence, cigarettes, uncomplicated; F41.9 Anxiety disorder, unspecified; I10 Essential (primary) hypertension; J06.9 Acute upper respiratory infection, unspecified; J32.9 Chronic sinusitis, unspecified; M19.90 Unspecified osteoarthritis, unspecified site; Z96.651 Presence of right artificial knee joint; Z87.01 Personal history of pneumonia (recurrent); Z87.440 Personal history of urinary (tract) infections; Z82.49 Family history of ischemic heart disease and other diseases of the circulatory system; Z90.710 Acquired absence of both cervix and uterus; Z83.71 Family history of colonic polyps; Z90.49 Acquired absence of other specified parts of digestive tract; Z90.711 Acquired absence of uterus with remaining cervical stump; Z88.8 Allergy status to other drugs, medicaments and biological substances; Z91.040 Latex allergy status; Z71.6 Tobacco abuse counseling
CPT/HCPCS: 36415; 71045; 80048; 80061; 80076; 83690; 83880; 84484; 85007; 85025; 85379; 85610; 85730; 93005; 93306; J2270; J7030

== ENCOUNTER 2018-02-01 20:01 | Inpatient (IN) | payer SELFPAY ==
[~2018-02-01] VITALS: Ht 175.3 cm; Wt 109.5 kg
[~2018-02-01 20:01] MED LIST changes: +ALPR0.5T PO; +AMLO10TA6 PO; +HYDR12.58 PO; +IBUP-1060 PO
[2018-02-01 20:41] LABS: BASO # 0.1 x10^3/uL (0.0-0.2); BASO % 1 % (0-3); EOS # 0.2 x10^3/uL (0.0-0.7); EOS % 2 % (0-3); HEMATOCRIT 39.7 % (36.0-47.0); HEMOGLOBIN 13.7 g/dL (12.0-15.5); LYMPH % 42 % (24-48); MEAN CORPUSCULAR HEMOGLOBIN 31 pg (25-35); MEAN CORPUSCULAR HGB CONC 35 g/dL (31-37); MEAN CORPUSCULAR VOLUME 90 fL (79-100); MONO # 0.8 x10^3/uL (0.0-1.1); MONO % 7 % (0-9); NEUT # 5.7 x10^3uL (1.8-7.7); NEUT % 48 % (31-73); PLATELET COUNT 326 x10^3/uL (140-400); RED BLOOD COUNT 4.43 x10^6/uL (3.50-5.40); RED CELL DISTRIBUTION WIDTH 13.2 % (11.5-14.5); WHITE BLOOD COUNT 11.8 x10^3/uL (4.0-11.0)
[2018-02-01] MEDS ORDERED: IV NORMAL SALINE 1000ML BAG 1,000 ML IV ONE (20:45)
--- NOTE | 2018-02-01 20:51 | PHYS DOC ---
Past Medical History Past Medical History: Anxiety, Arthritis, Hypertension, Other Additional Past Medical Histor: chest pain Past Surgical History: Cholecystectomy, Knee Replacement, Tonsillectomy, Other Additional Past Surgical Histo: Partial hysterectomy Alcohol Use: Occasionally Drug Use: None Adult General Chief Complaint Chief Complaint: CHEST PAIN HPI HPI Patient is a 52 year old female who presents to the ED with left-sided chest pain. She states the pain began one day ago. She describes the pain as a "grabbing and pulling" sensation. She rates the pain as a 9/10 and states that it radiates to her left shoulder. She notes that she had similar pain 1 week ago at which time she came into the ED and was kept overnight until the pain subsided. She also endorses current cough with green sputum production. She denies any shortness of breath, headache, dizziness, heart palpitations, abdominal pain, nausea, vomiting, diarrhea, or constipation. She notes that the pain is present at rest and with movement. Nothing makes the pain better or worse. She had been taking ibuprofen to help with the pain, but it has not been helping much. Review of Systems Review of Systems Constitutional: Denies fever or chills Eyes: Denies change in visual acuity, redness, or eye pain HENT: Denies nasal congestion or sore throat Respiratory: Notes cough with green sputum production; Denies shortness of breath Cardiovascular: Notes chest pain; Denies heart palpitations GI: Denies abdominal pain, nausea, vomiting, diarrhea : Denies dysuria or hematuria Musculoskeletal: Notes left shoulder pain and bilateral lower extremity edema; Denies back pain or joint pain Integument: Denies rash or skin lesions Neurologic: Denies headache, focal weakness or sensory changes Complete systems were reviewed and found to be within normal limits, except as documented in this note. Family History Family History Father- 3 bypass surgeries, of stroke Daughter- DC (currently has pacemaker and defibrillator) Current Medications Current Medications Current Medications Medications (Trade) Dose Ordered Sig/Chapito Start Time Stop Time Status Last Admin Dose Admin Albuterol/ Ipratropium (Duoneb) 3 ml 1X ONCE 02/01/18 23:00 02/01/18 23:01 Dexamethasone Sodium Phosphate (Decadron) 10 mg 1X ONCE 02/01/18 23:00 02/01/18 23:01 Fentanyl Citrate (Fentanyl 2ml Vial) 50 mcg PRN Q2HR PRN 02/01/18 22:45 02/02/18 22:44 Info (CONTRAST GIVEN -- Rx MONITORING) 1 each PRN DAILY PRN 02/01/18 21:30 02/03/18 21:29 Iohexol (Omnipaque 300 Mg/ml) 75 ml 1X ONCE 02/01/18 22:00 02/01/18 22:01 DC 02/01/18 22:08 75 ML Ondansetron HCl (Zofran) 4 mg PRN Q8HRS PRN 02/01/18 22:45 02/02/18 22:44 Sodium Chloride 1,000 ml @ 1,000 mls/hr 1X ONCE 02/01/18 20:45 02/01/18 21:44 DC Allergies Allergies Allergies Coded Allergies Type Severity Reaction Last Updated Verified latex Allergy Severe swelling 01/25/18 Yes lisinopril Allergy Severe Swelling 07/29/14 Yes Physical Exam Physical Exam Constitutional: Well developed, well nourished, slight acute distress HENT: Normocephalic, atraumatic, oropharynx moist Eyes: PERRL, EOMI, conjunctiva normal, no discharge Neck: Normal range of motion, no tenderness, supple Cardiovascular: Heart rate regular rhythm, no murmur, no tenderness on palpation Lungs & Thorax: Bilateral breath sounds clear to auscultation Abdomen: Soft, nontender Skin: Warm, dry, no erythema Back: No tenderness, no CVA tenderness Extremities: No tenderness, ROM intact, slight edema in bilateral lower extremities Neurologic: Alert and oriented X 3, normal motor function, normal sensory function, no focal deficits noted Psychologic: Affect normal, judgement normal, mood normal Current Patient Data Vital Signs Vital Signs Date Time Temp Pulse Resp B/P (MAP) Pulse Ox O2 Delivery O2 Flow Rate FiO2 02/01/18 20:04 98.3 74 23 135/78 (97) 100 Room Air 98.3 Lab Values Laboratory Tests Test 02/01/18 20:30 White Blood Count 11.8 x10^3/uL (4.0-11.0) H Red Blood Count 4.43 x10^6/uL (3.50-5.40) Hemoglobin 13.7 g/dL (12.0-15.5) Hematocrit 39.7 % (36.0-47.0) Mean Corpuscular Volume 90 fL (79-100) Mean Corpuscular Hemoglobin 31 pg (25-35) Mean Corpuscular Hemoglobin Concent 35 g/dL (31-37) Red Cell Distribution Width 13.2 % (11.5-14.5) Platelet Count 326 x10^3/uL (140-400) Neutrophils (%) (Auto) 48 % (31-73) Lymphocytes (%) (Auto) 42 % (24-48) Monocytes (%) (Auto) 7 % (0-9) Eosinophils (%) (Auto) 2 % (0-3) Basophils (%) (Auto) 1 % (0-3) Neutrophils # (Auto) 5.7 x10^3uL (1.8-7.7) Lymphocytes # (Auto) 5.0 x10^3/uL (1.0-4.8) H Monocytes # (Auto) 0.8 x10^3/uL (0.0-1.1) Eosinophils # (Auto) 0.2 x10^3/uL (0.0-0.7) Basophils # (Auto) 0.1 x10^3/uL (0.0-0.2) Prothrombin Time 11.9 SEC (11.7-14.0) Prothrombin Time INR 0.9 (0.8-1.1) Sodium Level 142 mmol/L (136-145) Potassium Level 3.6 mmol/L (3.5-5.1) Chloride Level 104 mmol/L (98-107) Carbon Dioxide Level 25 mmol/L (21-32) Anion Gap 13 (6-14) Blood Urea Nitrogen 15 mg/dL (7-20) Creatinine 1.0 mg/dL (0.6-1.0) Estimated GFR (Cockcroft-Gault) 70.2 BUN/Creatinine Ratio 15 (6-20) Glucose Level 122 mg/dL (70-99) H Calcium Level 8.6 mg/dL (8.5-10.1) Magnesium Level 1.9 mg/dL (1.8-2.4) Total Bilirubin 0.2 mg/dL (0.2-1.0) Aspartate Amino Transferase (AST) 5 U/L (15-37) L Alanine Aminotransferase (ALT) 26 U/L (14-59) Alkaline Phosphatase 100 U/L (46-116) Creatine Kinase 135 U/L (26-192) Troponin I Quantitative < 0.017 ng/mL (0.000-0.055) QW-Ejz-S-Type Natriuretic Peptide 32 pg/mL (0-124) Total Protein 6.5 g/dL (6.4-8.2) Albumin 3.1 g/dL (3.4-5.0) L Albumin/Globulin Ratio 0.9 (1.0-1.7) L Lipase 148 U/L (73-393) Laboratory Tests 02/01/18 20:30 Laboratory Tests 02/01/18 20:30 EKG EKG @ 20:09, normal sinus rhythm at 71 bpm, no ST elevations or reciprocal changes, no abnormalities; doubt ischemic cause Interpretation Time: @ 20:15 Radiology/Procedures Radiology/Procedures PROCEDURE: VENOUS LOWER EXT BILATERAL Bilateral Leg Venous Doppler Ultrasound, 02/01/2018 Indication: Chest pain, bilateral lower extremity diagnosis Comparison: None available Procedure: Real-time grayscale, color flow color duplex Doppler and spectral analysis are obtained with and without compression in the area of the common femoral vein, superficial femoral vein - femoral vein junction, main femoral vein (superficial femoral vein) and popliteal vein. Veins of the proximal calf are also imaged. Findings: There is normal duplex flow, color flow and compressibility of all visualized vein segments. No evidence of deep venous thrombus is present. 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 Impression: Negative venous Doppler of bilateral lower extremity PROCEDURE: CT ANGIOGRAPHY CHEST Exam performed: CT pulmonary angiogram of the chest with contrast. Date: 02/01/2018. Comparison: Single view chest from 01/25/2018 Indication: Chest pain today Technique: Contiguous helical acquisitions are obtained through the chest during intravenous administration of [75] cc of [ Omnipaque 300 ] . [Sagittal and coronal MIP images were obtained and reviewed Findings: The structures at the thoracic inlet including both lobes of the thyroid gland appear normal.Pulmonary arterial opacification is adequate to evaluate for pulmonary embolus. There is no evidence for pulmonary embolism. The heart is normal in size. No pericardial effusion is seen. No mediastinal or hilar lymphadenopathy is seen. No infiltrates or pleural effusions are seen. No pulmonary nodules are detected. Mild emphysematous changes are seen in both lungs. Upper abdominal structures appear unremarkable. Osseous structures appear intact. Impression: 1. Study is negative for pulmonary embolism 2. Mild emphysematous changes are noted. Course & Med Decision Making Course & Med Decision Making Patient is a 52 year old female who presents to the ED with left-sided chest pain that began one day ago. She also endorses recent cough with green sputum production and bilateral lower extremity edema. Pertinent Labs and Imaging studies reviewed. (See chart for details). EKG @ 20:09 showed normal sinus rhythm at [address] elevations or reciprocal changes. Troponins were negative. Doubt ischemic cause. Venous Doppler of bilateral lower extremity was negative. CTA chest was negative for PE and showed mild emphysematous changes. Natriuretic-BNP was normal. Discussed all findings with patient and discussed discharge vs. admission to the hospital. Patient elects to be admitted to the hospital as she feels unsafe to go home and would like further observation. Patient elects for admission for further observation. Discussed with Dr. Murphy who is in agreement with admission for observation, due to the fact that the patient feels unsafe to go home and would like further evaluation for her symptoms. Cardiology consulted, per conversation with Dr. Murphy. Discussed findings and plan with patient who acknowledges understanding and agreement. Dragon Disclaimer Dragon Disclaimer This electronic medical record was generated, in whole or in part, using a voice recognition dictation system. Departure Departure Impression: Primary Impression: Chest pain Disposition: ADMITTED INPATIENT Admitting Physician: Sanford Murphy Condition: STABLE Referrals: MOHAN LINDSAY (PCP) Problem Qualifiers Primary Impression: Chest pain Chest pain type: unspecified Qualified Codes: R07.9 - Chest pain, unspecified FAIZA FLANAGAN DO Feb 01, 2018 20:51
[2018-02-01 20:59] LABS: CALCIUM 8.6 mg/dL (8.5-10.1); GFR 70.2; POTASSIUM 3.6 mmol/L (3.5-5.1)
[2018-02-01 21:05] LABS: ALBUMIN 3.1 g/dL (3.4-5.0); ALBUMIN/GLOBULIN RATIO 0.9 (1.0-1.7); MAGNESIUM 1.9 mg/dL (1.8-2.4); TOTAL BILIRUBIN 0.2 mg/dL (0.2-1.0); TOTAL PROTEIN 6.5 g/dL (6.4-8.2)
[2018-02-01 21:06] LABS: PROTHROMBIN TIME PATIENT 11.9 SEC (11.7-14.0)
[2018-02-01] MEDS ORDERED: CONTRAST GIVEN. MC PRN (21:30)
--- NOTE | 2018-02-01 21:30 | RAD ---
Bilateral Leg Venous Doppler Ultrasound, 02/01/2018 Indication: Chest pain, bilateral lower extremity diagnosis Comparison: None available Procedure: Real-time grayscale, color flow color duplex Doppler and spectral analysis are obtained with and without compression in the area of the common femoral vein, superficial femoral vein - femoral vein junction, main femoral vein (superficial femoral vein) and popliteal vein. Veins of the proximal calf are also imaged. Findings: There is normal duplex flow, color flow and compressibility of all visualized vein segments. No evidence of deep venous thrombus is present. 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 Impression: Negative venous Doppler of bilateral lower extremity Electronically signed by: Sophia Schuster MD (02/01/2018 9:27 PM) [facility]
[2018-02-01] MEDS ORDERED: IOHEXOL 300 MG/ML 100ML VIAL. IV ONE (22:00)
--- NOTE | 2018-02-01 22:24 | RAD ---
Exam performed: CT pulmonary angiogram of the chest with contrast. Date: 02/01/2018. Comparison: Single view chest from 01/25/2018 Indication: Chest pain today Technique: Contiguous helical acquisitions are obtained through the chest during intravenous administration of [75] cc of [ Omnipaque 300 ] . [Sagittal and coronal MIP images were obtained and reviewed Findings: The structures at the thoracic inlet including both lobes of the thyroid gland appear normal.Pulmonary arterial opacification is adequate to evaluate for pulmonary embolus. There is no evidence for pulmonary embolism. The heart is normal in size. No pericardial effusion is seen. No mediastinal or hilar lymphadenopathy is seen. No infiltrates or pleural effusions are seen. No pulmonary nodules are detected. Mild emphysematous changes are seen in both lungs. Upper abdominal structures appear unremarkable. Osseous structures appear intact. Impression: 1. Study is negative for pulmonary embolism 2. Mild emphysematous changes are noted. PQRS Compliance Statement: One or more of the following individualized dose reduction techniques were utilized for this examination: 1. Automated exposure control 2. Adjustment of the mA and/or kV according to patient size 3. Use of iterative reconstruction technique Electronically signed by: Sophia Schuster MD (02/01/2018 10:21 PM) [facility]
[2018-02-01] MEDS ORDERED: ONDANSETRON PF 4 MG/2 ML VIAL. IV PRN (22:45)
[2018-02-01] MEDS ORDERED: IPRATRPIUM/ALBUTEROL 0.5/2.5MG 3 ML NEBU. NEB ONE (23:00)
[2018-02-01] MEDS ORDERED: DEXAMETHASONE SOD PHOS 20 MG/5 ML VIAL. IV ONE (23:00)
--- NOTE | 2018-02-01 23:36 | EKG ---
[facility] [address] [place] [address] Test Date: 2018-02-01 Test Time: 20:09:40 Pat Name: EDMOND ROMANO Department: Room: [facility] Gender: F Jawbone Breaker: TAMMIE : 1965 Requested By: FAIZA FLANAGAN Order Number: [id number] Reading MD: Terence Colby Measurements Intervals [place] Rate: 71 P: 47 CT: 184 QRS: 12 QRSD: 94 T: 37 QT: 406 QTc: 446 Interpretive Statements SINUS RHYTHM Electronically Signed On 02-06-2018 11:52:56 CDT by Terence Colby
[2018-02-01] MEDS: fentaNYL PF VIAL 100 MCG/2 ML VIAL IV PRN (23:47)
[2018-02-01 23:50] LABS: BILIRUBIN,URINE NEGATIVE (NEG); CLARITY,URINE CLEAR; COLOR,URINE YELLOW; NITRITE,URINE NEGATIVE (NEG); PROTEIN,URINE NEGATIVE (NEG-TRACE)
[2018-02-01 23:53] LABS: BACTERIA,URINE FEW /HPF (0-FEW); RBC,URINE 0 /HPF (0-2); SQUAMOUS EPITHELIAL CELL,UR FEW /LPF
[2018-02-02] MEDS ORDERED: ALPR0.5T PO (00:29)
[2018-02-02 00:34] VITALS: BP 139/77
[2018-02-02] MEDS ORDERED: IBUPROFEN 400 MG TABLET. PO PRN (00:45)
[2018-02-02] MEDS ORDERED: ALPRAZolam 0.5 MG TABLET PO PRN (00:45)
[2018-02-02] MEDS: fentaNYL PF VIAL 100 MCG/2 ML VIAL IV PRN ×2 (02:20→05:27)
[2018-02-02 03:10] VITALS: BP 115/74
[2018-02-02 07:00] VITALS: BP 143/72
--- NOTE | 2018-02-02 08:52 | PDOC ---
Provider Note Provider Note H&P to be dictated. #[id number] ELLIS CHOI MD Feb 02, 2018 08:52
[2018-02-02] MEDS ORDERED: amLODIPine BESYLATE 10 MG TABLET PO SCH (09:00)
[2018-02-02] MEDS ORDERED: hydroCHLOROthiazide 25 MG TABLET PO SCH (09:00)
--- NOTE | 2018-02-02 09:08 | PDOC ---
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 02/02/18 0908: CARDIO Progress Notes Date and Time Date of Service 02/02/2018 Time of Evaluation 0830 Subjective Subjective: No Chest Pain, No shortness of breath, No Palpitations, Other ( still has coughing spells) Vitals Vitals Vital Signs Date Time Temp Pulse Resp B/P (MAP) Pulse Ox O2 Delivery O2 Flow Rate FiO2 02/02/18 07:00 97.5 68 16 143/72 (95) 95 Room Air 97.5 Weight Weight [ ] Input and Output Intake and Output Intake and Output 02/02/18 07:00 Intake Total 0 ml Output Total 50 ml Balance -50 ml Intake Oral 0 ml Output Urine Total 50 ml Laboratory Labs Laboratory Tests Test 02/01/18 20:30 02/01/18 23:35 02/02/18 01:30 02/02/18 04:50 White Blood Count 11.8 x10^3/uL (4.0-11.0) Red Blood Count 4.43 x10^6/uL (3.50-5.40) Hemoglobin 13.7 g/dL (12.0-15.5) Hematocrit 39.7 % (36.0-47.0) Mean Corpuscular Volume 90 fL (79-100) Mean Corpuscular Hemoglobin 31 pg (25-35) Mean Corpuscular Hemoglobin Concent 35 g/dL (31-37) Red Cell Distribution Width 13.2 % (11.5-14.5) Platelet Count 326 x10^3/uL (140-400) Neutrophils (%) (Auto) 48 % (31-73) Lymphocytes (%) (Auto) 42 % (24-48) Monocytes (%) (Auto) 7 % (0-9) Eosinophils (%) (Auto) 2 % (0-3) Basophils (%) (Auto) 1 % (0-3) Neutrophils # (Auto) 5.7 x10^3uL (1.8-7.7) Lymphocytes # (Auto) 5.0 x10^3/uL (1.0-4.8) Monocytes # (Auto) 0.8 x10^3/uL (0.0-1.1) Eosinophils # (Auto) 0.2 x10^3/uL (0.0-0.7) Basophils # (Auto) 0.1 x10^3/uL (0.0-0.2) Prothrombin Time 11.9 SEC (11.7-14.0) Prothromb Time International Ratio 0.9 (0.8-1.1) Sodium Level 142 mmol/L (136-145) Potassium Level 3.6 mmol/L (3.5-5.1) Chloride Level 104 mmol/L (98-107) Carbon Dioxide Level 25 mmol/L (21-32) Anion Gap 13 (6-14) Blood Urea Nitrogen 15 mg/dL (7-20) Creatinine 1.0 mg/dL (0.6-1.0) Estimated GFR (Cockcroft-Gault) 70.2 BUN/Creatinine Ratio 15 (6-20) Glucose Level 122 mg/dL (70-99) Calcium Level 8.6 mg/dL (8.5-10.1) Magnesium Level 1.9 mg/dL (1.8-2.4) Total Bilirubin 0.2 mg/dL (0.2-1.0) Aspartate Amino Transf (AST/SGOT) 5 U/L (15-37) Alanine Aminotransferase (ALT/SGPT) 26 U/L (14-59) Alkaline Phosphatase 100 U/L (46-116) Creatine Kinase 135 U/L (26-192) Troponin I Quantitative < 0.017 ng/mL (0.000-0.055) < 0.017 ng/mL (0.000-0.055) < 0.017 ng/mL (0.000-0.055) IZ-Tfo-L-Type Natriuretic Peptide 32 pg/mL (0-124) Total Protein 6.5 g/dL (6.4-8.2) Albumin 3.1 g/dL (3.4-5.0) Albumin/Globulin Ratio 0.9 (1.0-1.7) Lipase 148 U/L (73-393) Urine Collection Type Unknown Urine Color Yellow Urine Clarity Clear Urine pH 6.0 Urine Specific Bryant 1.020 Urine Protein Negative mg/dL (NEG-TRACE) Urine Glucose (UA) Negative mg/dL (NEG) Urine Ketones (Stick) Negative mg/dL (NEG) Urine Blood Negative (NEG) Urine Nitrite Negative (NEG) Urine Bilirubin Negative (NEG) Urine Urobilinogen Dipstick 1.0 mg/dL (0.2 mg/dL) Urine Leukocyte Esterase Negative (NEG) Urine RBC 0 /HPF (0-2) Urine WBC 1-4 /HPF (0-4) Urine Squamous Epithelial Cells Few /LPF Urine Bacteria Few /HPF (0-FEW) Physical Exam HEENT: Neck Supple W Full Motion, Other (upper airway congestion, dyphonia) Chest: Symmetric LUNGS: Clear to Auscultation Heart: S1S2, RRR (SR no ectopies) Abdomen: Soft N/T Extremities: No Edema, No Calf Tenderness Neurology: alert, oriented, follow commands Assessment Assessment Reason for consult: CP Requesting Provider: Aknit HPI: This is a pleasant 52 yo female admitted for complains of chest pain. She has had previous URI with intractable coughing and heartburn episodes treated recently and was discharged but unfortunately she could not afford the antibiotics. She has been taking her existing BP med but otherwise she was denied by family member noting that they also dont have money to lend her. She continues to have green nasal productive cough drainage and now with sore throat but no significant SOA. Has heartburn but no nausea or vomiting despite her intractable cough. She does have chest pain mainly to left upper chest going to shoulder and base of neck which are all reproducible with palpation associated with her continued episodes of intractable coughing. No complains of fever or chills. I saw her >1 wk ago for chest pain and symptoms were atypical and was noted to be MSK from her intractable cough and GERD exacerbation which Assessments; 1. Atypical CP: Noncardiac. MSK exacerbated by intractable coughing 2. Continue URI: could not get antibiotics prescribed due to financial constraints. 3. AECOPD with continued tobaccoism 4. GERD exacerbation 5. HTN: well controlled 6. Family hx of sarcoidosis 7. Tobaccoism Recommendations 1. Recent TTE unremarkable for acute changes. Continue with home amlodipine 2. Defer COPD and URI treatments to PCP. Continue with pepcid. 3. Smoking cessation 4. No further cardiac testing. MICHELLE KURTZ MD 02/03/18 1037: CARDIO Progress Notes Assessment Assessment Patient seen and examined 02/02/18 (late entry). 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 Chest pain with atypical features and most probably musculoskeletal. Myocardial infarction has been ruled out. Recent 2-D echo showed normal LV function without any wall motion abnormalities. Continue current treatment for COPD exacerbation. No further cardiac workup is indicated at this time. Thank you for your consultation. VALERIO OSBORNE APRN Feb 02, 2018 09:08 MICHELLE KURTZ MD Feb 03, 2018 10:37
[2018-02-02] MEDS ORDERED: FAMOTIDINE 20 MG TABLET. PO ONE (09:15)
[2018-02-02] MEDS ORDERED: PRED50TA PO (10:01)
[2018-02-02] MEDS ORDERED: AMOX1TAB61 PO (10:01)
[2018-02-02 10:38] VITALS: BP 143/72
--- NOTE | 2018-02-02 10:41 | HP ---
ADMIT DATE: 02/01/2018 PATIENT LOCATION: [facility]. REASON FOR ADMISSION TO THE HOSPITAL: Left-sided chest pain, cough and congestion. HISTORY OF PRESENT ILLNESS: The patient is a 52-year-old female. The patient was discharged from the hospital 1 week ago for acute sinusitis and bronchitis. She was given prescription for Augmentin, but she did not have money to get the prescription; she did not take the antibiotics. She came with worsening cough and congestion and she was coughing bad. She has pain in the left side of the chest and the shoulder blade and came to the Emergency Room. EKG was negative. Cardiac enzymes negative. She was admitted for observation. PAST MEDICAL HISTORY: Hypertension, arthritis, anxiety and possible GERD. PAST SURGICAL HISTORY: Gallbladder surgery, knee replacement, tonsillectomy and cholecystectomy. ALLERGIES: ALLERGY TO LISINOPRIL AND LATEX. MEDICATIONS AT HOME: Amlodipine, hydrochlorothiazide and ibuprofen. PERSONAL HISTORY: Smoked for 20 years. Social alcohol. Denies any street drugs. FAMILY HISTORY: Hypertension. REVIEW OF SYMPTOMS: Cough, some yellow sputum, pain while she is coughing. No fever. Rest of the 14-system was reviewed and negative. PHYSICAL EXAMINATION: VITAL SIGNS: At the time of admission show a temperature 98, pulse 74, respirations 23, blood pressure 135/78 and 100% room air. HEENT: Head is atraumatic. Pupils equal. Oral cavity, slight congestion with postnasal drip. NECK: Supple. Thyroid not enlarged. JVD not elevated. CHEST: Symmetrical. CARDIOVASCULAR: S1, S2. LUNGS: Clear to auscultation. ABDOMEN: Soft. No masses palpable. EXTREMITIES: The patient has pain on movement of the left shoulder, some point tenderness in the left shoulder. LABORATORY DATA: White count 12, hemoglobin 13 and platelets 326,000. INR 0.9. Electrolytes: Sodium 132, potassium 3.6, chloride 104, bicarbonate 25, BUN 25, creatinine 1.0 and glucose 127. Troponin was negative. LFTs were negative. Urine was negative and Doppler of lower extremities was negative for DVT. CT angiogram of the chest, negative for PE, mild emphysema. FINAL IMPRESSION: 1. Acute sinusitis. The patient did not get her antibiotics filled in last week; she says no money. 2. Chest wall pain, secondary to skeletomuscular from a shoulder joint. 3. Hypertension. 4. Smoking history. 5. Mild emphysema. PLAN: At this time, smoking counseling was done. Given Augmentin 875 mg twice daily for 10 days and prednisone 50 mg daily for 7 days and follow up with PCP. The patient had echocardiogram, which was pretty good last week. ELLIS CHOI MD DR: ARNIE/maty JOB#: [id number] / [id number] MOHAN Mooney
[2018-02-02] MEDS ORDERED: FAMOTIDINE 20 MG TABLET. PO SCH (21:00)
--- NOTE | 2018-02-03 17:41 | PDOC ---
Provider Note Provider Note Discharge summary dictated. #[id number] ELLIS CHOI MD Feb 03, 2018 17:41
--- NOTE | 2018-02-03 18:57 | DS ---
DATE OF DISCHARGE: 02/02/2018 REASON FOR ADMISSION TO THE HOSPITAL: Chest wall pain, sinusitis, bronchitis. CONSULTATION: Cardiology. PROCEDURES DONE: None. HOSPITAL COURSE: The patient is a 52-year-old female, with history of hypertension, hyperlipidemia, had sinusitis, bronchitis last week, was discharged. She was given prescription for Augmentin, but she did not get the prescription filled, came with worsening cough with sinus drainage, bronchitis as well as pain in the left side of the chest, mostly at the shoulder and was admitted to the hospital, seen by Cardiology. It was more of a skeletomuscular pain. Does not think she needs cardiac evaluation at this time. The patient was discharged. Recommended to continue Augmentin 875 twice daily for 10 days and prednisone 50 mg daily for 5 days, and continue other medications. Smoking counseling was done. ELLIS CHOI MD DR: ARNIE/maty JOB#: [id number] / [id number] MOHAN Mooney
== END 2018-02-02 11:12 | disposition home or self-care (01) | DRG 192 ==
LOC: ER 20:01 → 6 SOUTH 22:50
PROVIDERS: ADMIT Internal Medicine; ATTEND Internal Medicine
DX: J44.1 Chronic obstructive pulmonary disease with (acute) exacerbation (principal); R07.89 Other chest pain; D86.9 Sarcoidosis, unspecified; E78.5 Hyperlipidemia, unspecified; F17.200 Nicotine dependence, unspecified, uncomplicated; I10 Essential (primary) hypertension; K21.9 Gastro-esophageal reflux disease without esophagitis; Z96.659 Presence of unspecified artificial knee joint; Z82.3 Family history of stroke; Z82.49 Family history of ischemic heart disease and other diseases of the circulatory system; Z90.710 Acquired absence of both cervix and uterus; F41.9 Anxiety disorder, unspecified; M19.90 Unspecified osteoarthritis, unspecified site; Z90.49 Acquired absence of other specified parts of digestive tract; Z90.711 Acquired absence of uterus with remaining cervical stump; Z71.6 Tobacco abuse counseling; Z88.8 Allergy status to other drugs, medicaments and biological substances; Z91.040 Latex allergy status; Z79.899 Other long term (current) drug therapy
CPT/HCPCS: 36415; 71275; 80053; 81001; 82550; 83690; 83735; 83880; 84484; 85025; 85610; 93005; 93970; 94640; 96361; 96374; 96375; J1100; J2405; J3010; J7030; J7620; Q9967; 99285-25

== ENCOUNTER 2020-12-03 09:05 | Emergency (ER) | payer MEDICARE, MEDICAID ==
[~2020-12-03] VITALS: Ht 175.3 cm; Wt 102.9 kg
[~2020-12-03 09:05] MED LIST changes: +AMLO-187 PO; -AMLO10TA6 PO; +PRED50TA PO
--- NOTE | 2020-12-03 09:33 | PHYS DOC ---
Past Medical History Past Medical History: Anxiety, Arthritis, Hypertension, Other Additional Past Medical Histor: chest pain Past Surgical History: Cholecystectomy, Knee Replacement, Tonsillectomy, Other Additional Past Surgical Histo: Partial hysterectomy Smoking Status: Current Every Day Smoker Alcohol Use: Occasionally Drug Use: None General Adult HPI: HPI: Patient is a 55 year old female with past medical history of hypertension and anxiety who presents with several days of multiple symptoms. Started with cough and congestion approximately 3 days ago. Has become much more fatigued. Over the past couple of days has become more short of breath as well. Has had some mild headache and body aches. She is not vaccinated for Covid. 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 Has had some chest pain as well. It is sharp. Not pleuritic. Nonexertional. Review of Systems: Review of Systems: Constitutional: + Chills, generalized fatigue, myalgias. No fever.. [] Eyes: Denies change in visual acuity. [] HENT: + Congestion. No sore throat [] Respiratory: + Cough and shortness of breath. [] Cardiovascular: + Sharp chest pain. No lower extremity edema. [] GI: Denies abdominal pain, nausea, vomiting, bloody stools or diarrhea. [] : Denies dysuria. [] Musculoskeletal: Denies back pain or joint pain. [] Integument: Denies rash. [] Neurologic: + headache. No focal weakness or sensory changes. [] Endocrine: Denies polyuria or polydipsia. [] Lymphatic: Denies swollen glands. [] Psychiatric: Denies depression or anxiety. [] Heart Score: C/O Chest Pain: Yes HEART Score for Chest Pain: HEART Score for Chest Pain Response (Comments) Value History Slighlty/Non-Suspicious 0 ECG Normal 0 Age >45 - < 65 1 Risk Factors 1 or 2 Risk Factors 1 Total 2 Risk Factors: Risk Factors: DM, Current or recent (<one month) smoker, HTN, HLP, family history of CAD, obesity. Risk Scores: Score 0 - 3: 2.5% MACE over next 6 weeks - Discharge Home Score 4 - 6: 20.3% MACE over next 6 weeks - Admit for Clinical Observation Score 7 - 10: 72.7% MACE over next 6 weeks - Early Invasive Strategies Family History: Family History: No pertinent family history Allergies: Allergies: Allergies Coded Allergies Type Severity Reaction Last Updated Verified latex Allergy Severe swelling 01/25/18 Yes lisinopril Allergy Severe Swelling 07/29/14 Yes Physical Exam: PE: Constitutional: Well developed, well nourished, no acute distress, non-toxic appearance. [] HENT: Normocephalic, atraumatic, bilateral external ears normal, oropharynx moist, no oral exudates, nose normal. [] Eyes: PERRLA, EOMI, conjunctiva normal, no discharge. [] Neck: Normal range of motion, no tenderness, supple, no stridor. [] Cardiovascular:Heart rate regular rhythm, no murmur [] Lungs & Thorax: Bilateral breath sounds clear to auscultation [] Abdomen: Bowel sounds normal, soft, no tenderness, no masses, no pulsatile masses. [] Skin: Warm, dry, no erythema, no rash. [] Back: No tenderness, no CVA tenderness. [] Extremities: No tenderness, no cyanosis, no clubbing, ROM intact, no edema. [] Neurologic: Alert and oriented X 3, normal motor function, normal sensory function, no focal deficits noted. [] Psychologic: Affect normal, judgement normal, mood normal. [] EKG: EKG: Sinus rhythm. Rate 80. QTc 470. Other intervals are normal. Slight leftward axis. No Q waves, T wave inversion. No ST elevation or ST depression. [] Radiology/Procedures: Radiology/Procedures: CXR [] Impression: [facility] [address] [facility] [place], [place] [id number] IMAGING REPORT Signed PATIENT: EDMOND ROMANO ACCOUNT: [id number] : 1965 LOCATION: ER AGE: 55 SEX: F EXAM STATUS: REG ER ORD. PHYSICIAN: RAQUEL BASSETT MD REASON: chest pain, cough PROCEDURE: CHEST AP ONLY XR CHEST 1V History: Reason: chest pain, cough / Spl. Instructions: / History: Comparison: January 25, 2018 Findings: Mild ill-defined left basilar opacity. No pleural effusion. No pneumothorax. Impression: 1. Mild ill-defined left basilar opacity, may represent atelectasis or developing infiltrate. Electronically signed by: Martin Gutierrez DO (12/03/2020 10:11 AM) [id number] DICTATED and SIGNED BY: MARTIN GUTIERREZ DO DATE: 12/03/20 [id number] 0 Course & Med Decision Making: Course & Med Decision Making Pertinent Labs and Imaging studies reviewed. (See chart for details) Patient is a 55-year-old female with history of HTN and anxiety who presents wi th 3 days of multiple systems including congestion, cough, shortness of breath, fatigue, myalgias, and chest pain. Chest pain is sharp, not pleuritic, not exertional. Does not sound typically anginal. ECG is nonischemic. It is troponin is negative, do not feel that she requires any further ACS work-up or monitoring. With cough and congestion preceding, feel that pulmonary embolism is much less likely. Do not feel that she requires a PE work-up with reassuring vital signs we will check a chest x-ray for any signs of pneumonia. 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 We will check for Covid and make PUI. Will check CBC, CMP for any electrolyte or cell count abnormalities. We will continue to monitor. 0932 Troponin is negative. Labs are reassuring. Rapid Covid test is negative. CHest x-ray shows question of the slight left lower lobe infiltrate versus atelectasis. Given her infectious syndrome, will treat with antibiotics. Feel she is appropriate for amoxicillin solo therapy per IDSA guidelines. 1051 Uvaldo Disclaimer: Uvaldo Disclaimer: This electronic medical record was generated, in whole or in part, using a voice recognition dictation system. Departure Departure Disposition: HOME / SELF CARE / HOMELESS Condition: STABLE Referrals: LIANET PICKETT (PCP) Please schedule follow-up with your primary care doctor Additional Instructions: Your chest x-ray looks like you might have a small pneumonia on the left side. I like to treat you with amoxicillin, and antibiotic. Please take the full's prescription as prescribed. Please follow-up your primary care doctor to ensure that your symptoms are improving. Your rapid Covid test was negative. The definitive test will be done tomorrow. Please consider getting a Covid vaccine when you are feeling well. Scripts Amoxicillin (AMOXICILLIN) 500 Mg Tablet 2 TAB PO BID for 7 Days, #28 TAB Prov: RAQUEL BASSETT MD 12/03/20 RAQUEL BASSETT MD Dec 03, 2020 09:32
[2020-12-03 10:04] LABS: BASO # 0.1 x10^3/uL (0.0-0.2); BASO % 1 % (0-3); EOS # 0.3 x10^3/uL (0.0-0.7); EOS % 3 % (0-3); HEMATOCRIT 42.2 % (36.0-47.0); HEMOGLOBIN 14.3 g/dL (12.0-15.5); LYMPH # 4.4 x10^3/uL (1.0-4.8); LYMPH % 40 % (24-48); MEAN CORPUSCULAR HEMOGLOBIN 31 pg (25-35); MEAN CORPUSCULAR HGB CONC 34 g/dL (31-37); MEAN CORPUSCULAR VOLUME 91 fL (79-100); MONO # 0.7 x10^3/uL (0.0-1.1); MONO % 6 % (0-9); NEUT # 5.7 x10^3/uL (1.8-7.7); NEUT % 51 % (31-73); PLATELET COUNT 335 x10^3/uL (140-400); RED BLOOD COUNT 4.62 x10^6/uL (3.50-5.40); RED CELL DISTRIBUTION WIDTH 13.3 % (11.5-14.5)
[2020-12-03 10:06] LABS: CALCIUM 9.1 mg/dL (8.5-10.1); CREATININE 0.8 mg/dL (0.6-1.0); GFR 89.8; POTASSIUM 4.4 mmol/L (3.5-5.1)
[2020-12-03 10:12] LABS: ALBUMIN 3.5 g/dL (3.4-5.0); TOTAL BILIRUBIN 0.2 mg/dL (0.2-1.0)
--- NOTE | 2020-12-03 10:13 | RAD ---
XR CHEST 1V History: Reason: chest pain, cough / Spl. Instructions: / History: Comparison: January 25, 2018 Findings: Mild ill-defined left basilar opacity. No pleural effusion. No pneumothorax. Impression: 1. Mild ill-defined left basilar opacity, may represent atelectasis or developing infiltrate. Electronically signed by: Martin Gutierrez DO (12/03/2020 10:11 AM) [id number]
[2020-12-03] MEDS ORDERED: ACETAMINOPHEN 500 MG TABLET PO ONE (10:15)
[2020-12-03] MEDS ORDERED: AMOX500T PO (11:00)
[2020-12-03 11:25] VITALS: BP 143/79
--- NOTE | 2020-12-04 09:25 | NUR ---
IP: Attempted to contact pt concerning covid results. No answer, left a voicemail to return the call.
--- NOTE | 2020-12-06 16:38 | NUR ---
IP: Informed pt of negative covid test. Pt verbalized understanding.
== END 2020-12-03 11:39 | disposition home or self-care (01) ==
LOC: ER 09:05
DX: R05 Cough (principal); Z20.822 Contact with and (suspected) exposure to COVID-19; R09.81 Nasal congestion; R51.9 Headache, unspecified; R06.02 Shortness of breath; I10 Essential (primary) hypertension; R53.83 Other fatigue; F17.200 Nicotine dependence, unspecified, uncomplicated; Z91.040 Latex allergy status; Z88.6 Allergy status to analgesic agent
CPT/HCPCS: 36415; 71045; 80053; 84484; 85025; 87426; 93005; 99285; U0003; U0005